=== PATIENT | female | born 1990 | race Caucasian/White ===

== ENCOUNTER → 2016-09-13 | Outpatient (REF) ==
--- NOTE | 2016-09-13 14:22 | REP ---
PARTIAL LUMBAR SPINE SERIES: Three views. HISTORY: Degenerative disc disease. FINDINGS: There is degenerative disc narrowing and spur formation at the T12-L1 disc space level with narrowing of the anterior aspects of the disc and a minimal gibbous formation at T12-L1 with widening of the posterior aspect of the disc. The interspinous distance is somewhat widened as well. The pedicles and posterior elements appear intact. AP view at this level shows discogenic spurring. Lumbar vertebral body heights are preserved. Alignment is otherwise normal. There is mild disc space narrowing at L4-5. Pedicles and posterior elements are intact. Psoas margins are symmetric. Visualized bowel gas pattern is normal. IMPRESSION: 1. Mild degenerative disc narrowing at L4-5. 2. Atypical degenerative disc changes at T12-L1 with minimal gibbous deformity and widening of the posterior interspinous space question ligament injury. Discogenic spurring and disc space narrowing are seen anteriorly at T12-L1. Consideration should be given to MRI scanning for further evaluation of the T12-L1 levels. Signed by Lauro Sloan MD 09/13/2016 05:01 P
== END ==
LOC: M SMT 10:12
PROVIDERS: ATTEND Internal Medicine
DX: M54.5 Low back pain (principal)